=== PATIENT | male | born 1980 | race Caucasian/White ===

== ENCOUNTER 2017-10-19 08:19 | Emergency (ER) | payer OTHER ==
[~2017-10-19 08:19] MED LIST: ALBU8I INH; BENZ1CAP34 PO; PRED20 PO
[2017-10-19 08:21] VITALS: BP 144/77; PULSE 77; RESP 16; TEMP 98.2; O2SAT 99
[2017-10-19] MEDS ORDERED: CEPH-460 PO (08:33)
--- NOTE | 2017-10-19 08:36 | PD ---
HPI . Sore throat Chief Complaint: ENT Complaint Time Seen by Provider: 08:28 Travel History International Travel<30 days: No Contact w/Intl Traveler<30days: No Traveled to known affect area: No History of Present Illness HPI Patient presents with a chief complaint of a sore throat and left ear pain. Onset yesterday. Symptoms have been persistent since that time. Pain is rated 6/10. No known fever. He reports a positive exposure to a respiratory infection at work. [facility] Past Medical History ADD: Yes Diminished Hearing: No Past Surgical History Ear Surgery: Yes ( TUBES A CHILD) Social History Alcohol Use: No Tobacco Use: Yes (1PPD) Substance Use: No Allergies-Medications (Allergen,Severity, Reaction): Coded Allergies: penicillin G (Verified Allergy, Severe, anaphalaytic, 10/19/17) Reported Meds & Prescriptions Reported Meds & Active Scripts Active Keflex (Cephalexin) 500 Mg Capsule 500 Mg PO TID 7 Days Deltasone 20 Mg Tab (Prednisone) 20 Mg Tab 20 Mg PO BID 5 Days Benzonatate 200 Mg Cap 200 Mg PO Q8H PRN Ventolin Hfa (Albuterol Sulfate) 8 Gm Aero 1 Puff INH Q4H PRN * SHAKE WELL BEFORE USE * Review of Systems Except as stated in HPI: all other systems reviewed are Neg General / Constitutional: No: Fever, Chills HENT: Positive: Sore Throat, Earache Physical Exam Narrative GENERAL: Awake and alert and in no acute distress. SKIN: Warm and dry. Normal color and turgor. HEAD: Normocephalic/atraumatic. EYES: Pupils are equal. Extraocular movements are intact. ENT: Oropharynx has erythema and edema of the uvula. The tonsils are not enlarged and there is no exudate. There is no peritonsillar swelling. TMs are shiny barnhart with good light reflexes bilaterally. NECK: Normal range of motion. Supple. No cervical lymphadenopathy palpated. CARDIOVASCULAR: Regular rate and rhythm. RESPIRATORY: Nonlabored respirations. Normal sats. MUSCULOSKELETAL: Atraumatic. Normal muscle tone. NEUROLOGICAL: A and O 3. Nonfocal. PSYCHIATRIC: Appropriate mood and affect. Data Data Last Documented VS Vital Signs Date Time Temp Pulse Resp B/P (MAP) Pulse Ox O2 Delivery O2 Flow Rate FiO2 10/19/17 08:21 98.2 77 16 144/77 (99) 99 Orders Orders Ed Discharge Order (10/19/17 08:33) MDM Medical Decision Making Medical Screen Exam Complete: Yes Emergency Medical Condition: Yes Differential Diagnosis Differential diagnosis of sore throat includes but is not limited to viral illness, strep throat, mononucleosis, retropharyngeal abscess, peritonsillar abscess Narrative Course This patient presents with a chief complaint of a sore throat. He has a red oropharynx with edema of the uvula. He will be treated presumptively for strep with Keflex. He is penicillin allergic. Diagnosis Primary Impression: Pharyngitis Qualified Codes: J02.9 - Acute pharyngitis, unspecified Patient Instructions: General Instructions Departure Forms: Tests/Procedures Additional Instructions: You may use Chloraseptic spray and throat lozenges as needed. Warm salt water gargles are often helpful. You may take Tylenol or ibuprofen for fever and body aches. Scripts Cephalexin (Keflex) 500 Mg Capsule 500 MG PO TID for Infection for 7 Days, CAP 0 Refills Prov: Belle Rankin MD 10/19/17 Disposition: 01 DISCHARGE HOME Condition: Stable Belle Rankin MD Oct 19, 2017 08:36
== END 2017-10-19 08:45 | disposition home or self-care (01) ==
LOC: PHED 08:19
DX: J02.9 Acute pharyngitis, unspecified (principal); H92.02 Otalgia, left ear; F98.8 Other specified behavioral and emotional disorders with onset usually occurring in childhood and adolescence; Z79.899 Other long term (current) drug therapy
CPT/HCPCS: 99283

== ENCOUNTER 2017-11-23 09:38 | Observation (INO) ==
--- NOTE | 2017-11-23 10:06 | ED ---
HPI General Chief Complaint: Chest Pain Stated Complaint: Chest Pain seen yesterday Time Seen by Provider: 11/23/17 09:53 Source: patient Mode of arrival: ambulatory Limitations: no limitations History of Present Illness HPI narrative: This patient complains of chest pressure. Duration 3 days. Symptoms are intermittent. Spells last 5-10 minutes and resolved. They are not exertional. He did have some radiation down his left arm at times. He is currently pain-free. No dyspnea. Symptoms are not pleuritic. He has no history of CAD but never had stress testing. No alleviating factors. No exacerbating factors. He went to [facility] emergency room yesterday for this pain and they wanted to hospitalize him but he left AGAINST MEDICAL ADVICE. Complete Quality Measures for STEMI Alert Patients Related Data Home Medications Medication Instructions Recorded Confirmed No Known Home Medications 11/23/17 11/23/17 Allergies Allergy/AdvReac Type Severity Reaction Status Date / Time penicillin G Allergy Severe anaphalayti Verified 11/23/17 09:52 c Review of Systems Except as stated in HPI: all other systems reviewed are negative [facility] Social History Social History Substance History: No History of Abuse Smoking Status: Current every day smoker Tobacco Type: Cigarettes How Often Do You Have a Drink Containing Alcohol: Monthly or less Recent Travel in [facility] within the Last 8 Weeks: No Recent Out of Country Travel within the Last 8 Weeks: No Immunization History Tetanus Immunization: Unsure Hx Influenza Vaccine This Season: No Exam Narrative Exam Narrative: GENERAL: Well-nourished, well-developed patient in no apparent distress. SKIN: Focused skin assessment reveals no rash and nodules. Skin is Warm and dry. HEAD: Atraumatic. Normocephalic. EYES: Pupils equal and round. No scleral icterus. No injection or drainage. ENT: No nasal bleeding or discharge. Mucous membranes pink and moist. NECK: Trachea midline. No JVD. CARDIOVASCULAR: Regular rate and rhythm. No murmur appreciated. RESPIRATORY: No accessory muscle use. Clear to auscultation. Breath sounds equal bilaterally. GASTROINTESTINAL: Abdomen soft, non-tender, nondistended. Hepatic and splenic margins not palpable. MUSCULOSKELETAL: No obvious deformities. No clubbing. No cyanosis. No edema. NEUROLOGICAL: Awake and alert. No obvious cranial nerve deficits. Motor grossly within normal limits. Normal speech. PSYCHIATRIC: Appropriate mood and affect; insight and judgment normal. Course Initial Documented Vital Signs Temperature 98.1 F 11/23/17 09:48 Pulse Rate 87 11/23/17 09:48 Respiratory Rate 16 11/23/17 09:48 Blood Pressure 145/70 H 11/23/17 09:48 Pulse Oximetry 98 11/23/17 09:48 Last Documented Vital Signs Temperature 98.1 F 11/23/17 09:48 Pulse Rate 66 11/23/17 12:19 Respiratory Rate 20 11/23/17 12:19 Blood Pressure 128/71 11/23/17 12:19 Pulse Oximetry 98 11/23/17 12:19 Medical Decision Making MDM Narrative Medical decision making narrative: IV placed and labs sent I reviewed his EKG which is normal I gave him aspirin He has a written report from my normal chest x-ray yesterday from [facility] so I am not repeating one today Cardiac enzymes are normal. He does have some nonspecific leukocytosis but no pneumonia or other infective symptoms He will be a 23 hour observation on telemetry in the chest pain center to rule out cardiac cause of his symptoms. He is only 37 years old but is a smoker with both parents having had KS in the past. Differential Diagnosis Differential Diagnosis: Differential diagnosis includes KS, angina, pericarditis , pleurisy, GERD, anxiety. Medical Records Medical records reviewed: Yes I reviewed the patient's medical records. Lab Data Lab results reviewed: Yes I reviewed the patient's lab results. Result diagrams: 11/23/17 10:39 11/23/17 10:39 Lab Results 11/23/17 11/23/17 11/23/17 Range/Units 10:39 10:39 10:39 CBC w Diff Auto diff final WBC 16.4 H (4.0-11.0) th/mm3 RBC 4.74 (4.50-5.90) mil/mm3 Hgb 14.9 (13.0-17.0) gm/dL Hct 43.6 (39.0-51.0) % MCV 91.8 (80.0-100.0) fL MCH 31.4 (27.0-34.0) pg MCHC 34.2 (32.0-36.0) % RDW 13.1 (11.6-17.2) % Plt Count 337 (150-450) th/mm3 MPV 8.3 (7.0-11.0) fL Neut % (Auto) 80.6 H (16.0-70.0) % Lymph % (Auto) 11.3 (9.0-44.0) % [place] % (Auto) 6.2 (0.0-8.0) % Eos % (Auto) 0.5 (0.0-4.0) % Baso % (Auto) 1.4 (0.0-2.0) % Neut # (Auto) 13.2 H (1.8-7.7) th/mm3 Lymph # (Auto) 1.9 (1.0-4.8) th/mm3 [place] # (Auto) 1.0 H (0.0-0.9) th/mm3 Eos # (Auto) 0.1 (0.0-0.4) th/mm3 Baso # (Auto) 0.2 (0.0-0.2) th/mm3 WBC Differential . Differential Comment . PT 10.3 (9.8-11.6) sec INR 1.0 Ratio APTT 25.7 (24.3-30.1) sec Sodium 139 (136-145) meq/L Potassium 4.4 (3.5-5.1) meq/L Chloride 106 (98-107) meq/L Carbon Dioxide 27.4 (21.0-32.0) meq/L Anion Gap 6 (5-15) meq/L BUN 12 (7-18) mg/dL Creatinine 1.10 (0.60-1.30) mg/dL Estimated GFR 75 L (>89) mL/min Random Glucose 111 H (74-106) mg/dL Calcium 8.3 L (8.5-10.1) mg/dL Total Creatine Kinase (39-308) U/L Troponin I Less than 0.02 L (0.02-0.05) ng/mL 11/23/17 Range/Units 10:39 CBC w Diff WBC (4.0-11.0) th/mm3 RBC (4.50-5.90) mil/mm3 Hgb (13.0-17.0) gm/dL Hct (39.0-51.0) % MCV (80.0-100.0) fL MCH (27.0-34.0) pg MCHC (32.0-36.0) % RDW (11.6-17.2) % Plt Count (150-450) th/mm3 MPV (7.0-11.0) fL Neut % (Auto) (16.0-70.0) % Lymph % (Auto) (9.0-44.0) % [place] % (Auto) (0.0-8.0) % Eos % (Auto) (0.0-4.0) % Baso % (Auto) (0.0-2.0) % Neut # (Auto) (1.8-7.7) th/mm3 Lymph # (Auto) (1.0-4.8) th/mm3 [place] # (Auto) (0.0-0.9) th/mm3 Eos # (Auto) (0.0-0.4) th/mm3 Baso # (Auto) (0.0-0.2) th/mm3 WBC Differential Differential Comment PT (9.8-11.6) sec INR Ratio APTT (24.3-30.1) sec Sodium (136-145) meq/L Potassium (3.5-5.1) meq/L Chloride (98-107) meq/L Carbon Dioxide (21.0-32.0) meq/L Anion Gap (5-15) meq/L BUN (7-18) mg/dL Creatinine (0.60-1.30) mg/dL Estimated GFR (>89) mL/min Random Glucose (74-106) mg/dL Calcium (8.5-10.1) mg/dL Total Creatine Kinase 75 (39-308) U/L Troponin I (0.02-0.05) ng/mL Discharge Plan Discharge Disposition Patient Disposition: 30 Still Patient Discharge Condition Condition: Stable Discharge Details Diagnosis: Atypical chest pain Physicians Team ED Provider: César Nogueira Primary Care Provider: Primary Care Kristal Hobson Rxs /Orders / Referrals /Forms Prescriptions: No Action No Known Home Medications RF: 0 Discharge Instructions Patient Printed Instructions: Chest Pain (ED) Status ED Status: With Doctor
[2017-11-23 10:47] LABS: Baso # (Auto) 0.2 th/mm3 (0.0-0.2); Baso % (Auto) 1.4 % (0.0-2.0); Eos # (Auto) 0.1 th/mm3 (0.0-0.4); Eos % (Auto) 0.5 % (0.0-4.0); Hematocrit 43.6 % (39.0-51.0); Hemoglobin 14.9 gm/dL (13.0-17.0); Lymph # (Auto) 1.9 th/mm3 (1.0-4.8); Lymph % (Auto) 11.3 % (9.0-44.0); Mean Corpuscular HGB Conc 34.2 % (32.0-36.0); Mean Corpuscular Hemoglobin 31.4 pg (27.0-34.0); Mean Corpuscular Volume 91.8 fL (80.0-100.0); Mean Platelet Volume 8.3 fL (7.0-11.0); Mono % (Auto) 6.2 % (0.0-8.0); Neut # (Auto) 13.2 th/mm3 (1.8-7.7); Neut % (Auto) 80.6 % (16.0-70.0); Platelet Count 337 th/mm3 (150-450); Red Blood Count 4.74 mil/mm3 (4.50-5.90); Red Cell Distribution Width 13.1 % (11.6-17.2); White Blood Count 16.4 th/mm3 (4.0-11.0)
[2017-11-23 10:53] LABS: Chloride 106 meq/L (98-107); Potassium 4.4 meq/L (3.5-5.1); Sodium 139 meq/L (136-145)
[2017-11-23 10:55] LABS: Calcium 8.3 mg/dL (8.5-10.1)
[2017-11-23 10:56] LABS: Anion Gap 6 meq/L (5-15); Blood Urea Nitrogen 12 mg/dL (7-18); Carbon Dioxide 27.4 meq/L (21.0-32.0); Glucose,Random 111 mg/dL (74-106)
[2017-11-23 10:57] LABS: Activated Partial Thrombo Time 25.7 sec (24.3-30.1); Prothrombin Time 10.3 sec (9.8-11.6)
[2017-11-23 10:59] LABS: Glomerular Filtration Rate 75 mL/min (>89)
[2017-11-23] MEDS ORDERED: Acetaminophen 500 MG Tablet PO PRN (12:50)
[2017-11-23] MEDS ORDERED: Sod Chloride 0.9% Inj 1,000 ML IV.CONT SCH (13:00)
[2017-11-23] MEDS ORDERED: Morphine Sulfate Inj 2 MG/ML Vial IV.PUSH PRN (13:15)
[2017-11-23 13:41] LABS: Creatine Kinase 85 U/L (39-308)
--- NOTE | 2017-11-23 13:41 | P.HP ---
History of Present Illness Primary Care Physician: No Primary Care Physician Chief Complaint: Chest pain History of Present Illness: 37-year-old male with no chronic medical illnesses who presented to the hospital for evaluation of chest pain. Patient indicates that he been experiencing chest discomfort for the last few months. He states that it is located over the left anterior chest and does radiate into his left arm occasionally. He states that is intermittent and can happen during rest or exertion. Patient states that the pain usually self resolves he has never taken any medication in order to make it any better. Patient indicates that the pain can go anywhere from 4-6 on a pain scale. Patient never had any previous workup. Does not have a prior medical doctor. Patient states that he went to [facility] and was recommended admission yesterday, however he indicates that due to insurance reasons he could not stay to have that done. The patient came to [place] today and is recommended that patient be observed in the chest pain center. - Diagnosis (1) Atypical chest pain Review of Systems All other systems reviewed negative except as stated in HPI Cardiovascular: Reports chest pain PMFSH - History History Provided By: Patient - Medical History Medical History: Medical History (Last Updated 11/23/17 @ 13:36 by GIOVANI Santiago) No pertinent past medical history - Surgical History Surgical History: Surgical History (Last Updated 11/23/17 @ 13:36 by GIOVANI Santiago) History of tympanostomy - Family History Family History: Family History (Last Updated 11/23/17 @ 13:37 by GIOVANI [email or web address]) Father Family history of heart disease - Tobacco History Second Hand Smoke Exposure: Yes Tobacco Use In Past 30 Days: Yes Smoking Status: Current every day smoker Tobacco Type: Cigarettes Packs Per Day: 1.5 - Alcohol History How Often Do You Have a Drink Containing Alcohol: 2 to 3 times a week - Substance Use History Substance History: No History of Abuse, Active Abuse (Smokes marijuana daily) - Travel History Recent Travel in the [place] Within the Last 8 Weeks: No Recent Travel Out of the Country Within the Last 8 Weeks: No - Immunization History Tetanus Immunization: Unsure Hx Influenza Vaccine This Season: No Medications and Allergies Active Medications: Active Medications Acetaminophen (Tylenol) 500 mg PO Q4H PRN PRN Reason: HEADACHE Hydrocodone Bitart/Acetaminophen ([place] 7.5/325) 1 tab PO Q4H PRN PRN Reason: PAIN SCALE 1 TO 7 Aspirin (Aspirin) 325 mg PO DAILY [facility] Sodium Chloride (Ns Inj) 1,000 mls @ 100 mls/hr IV.CONT .Q10H [facility] Last Admin: 11/23/17 13:23 Dose: 100 mls/hr Morphine Sulfate (Morphine Inj) 2 mg IV.PUSH Q4H PRN PRN Reason: PAIN 8-10 Nitroglycerin (Nitrostat Sl) 0.4 mg SL Q5M PRN PRN Reason: CHEST PAIN Sodium Chloride (Ns Flush) 2 ml IV.FLUSH PRN PRN PRN Reason: FLUSH AFTER USING IV ACCESS Sodium Chloride (Ns Flush) 2 ml IV.FLUSH BID [facility] Allergies Allergy/AdvReac Type Severity Reaction Status Date / Time penicillin G Allergy Severe anaphalayti Verified 11/23/17 13:31 c Home Medications Medication Instructions Recorded Confirmed Type No Known Home Medications 11/23/17 11/23/17 History Exam Vital signs: Vital Signs 11/23/17 09:48 11/23/17 10:01 11/23/17 10:29 Temperature 98.1 F Pulse Rate 87 71 Respiratory Rate 16 20 Blood Pressure 145/70 H 145/86 H Pulse Oximetry 98 96 97 11/23/17 12:19 Temperature Pulse Rate 66 Respiratory Rate 20 Blood Pressure 128/71 Pulse Oximetry 98 Intake & Output 11/22/17 11/23/17 11/23/17 18:59 06:59 18:59 Weight 90 kg Narrative: GENERAL: Well-developed, well-nourished, in no acute distress. alert and orientated HEENT: Head is normocephalic without any lesions or masses noted. Facial features are symmetric. Eyes: Pupils equal round reactive to light. Extraocular muscles are intact. Conjunctivae were clear. Oropharyngeal: Pharynx without any erythema edema. Tongue is midline without deviation. Buccal mucosa is moist without any masses or lesions NECK: Supple without any masses. Trachea midline no deviation. No JVD, no bruits are appreciated CARDIAC: Regular rhythm, regular rate. S1/S2 are heard. No murmurs gallops or rubs. LUNGS: Clear to auscultation bilaterally. No wheeze, rhonchi or rales. No use of accessory muscles on inspiration or expiration. ABDOMEN: Soft, nontender. Nondistended. Bowel sounds heard in all 4 quadrants. No organomegaly or masses. Negative rebound, negative guarding EXTREMITIES: No edema, pulses are equal bilaterally. No cyanosis or clubbing NEUROLOGY: Mood and affect appear appropriate. Cranial nerves II through XII grossly intact. Muscle strength 5/5 in upper and lower extremities bilaterally. Deep tendon reflexes are 2+ in upper and lower extremities bilaterally. Results - Labs CBC & Chem 7: 11/23/17 10:39 11/23/17 10:39 Labs: Laboratory Results - last 24 hr 11/23/17 11/23/17 11/23/17 10:39 10:39 10:39 CBC w Diff Auto diff final WBC 16.4 H RBC 4.74 Hgb 14.9 Hct 43.6 MCV 91.8 MCH 31.4 MCHC 34.2 RDW 13.1 Plt Count 337 MPV 8.3 Neut % (Auto) 80.6 H Lymph % (Auto) 11.3 [place] % (Auto) 6.2 Eos % (Auto) 0.5 Baso % (Auto) 1.4 Neut # (Auto) 13.2 H Lymph # (Auto) 1.9 [place] # (Auto) 1.0 H Eos # (Auto) 0.1 Baso # (Auto) 0.2 WBC Differential . Differential Comment . PT 10.3 INR 1.0 APTT 25.7 Sodium 139 Potassium 4.4 Chloride 106 Carbon Dioxide 27.4 Anion Gap 6 BUN 12 Creatinine 1.10 Estimated GFR 75 L Random Glucose 111 H Calcium 8.3 L Total Creatine Kinase Troponin I Less than 0.02 L 11/23/17 10:39 CBC w Diff WBC RBC Hgb Hct MCV MCH MCHC RDW Plt Count MPV Neut % (Auto) Lymph % (Auto) [place] % (Auto) Eos % (Auto) Baso % (Auto) Neut # (Auto) Lymph # (Auto) [place] # (Auto) Eos # (Auto) Baso # (Auto) WBC Differential Differential Comment PT INR APTT Sodium Potassium Chloride Carbon Dioxide Anion Gap BUN Creatinine Estimated GFR Random Glucose Calcium Total Creatine Kinase 75 Troponin I Caprini VTE Risk Assessment Caprini VTE Risk Assessment: No/Low Risk (score <= 1) Caprini Risk Assessment Model: Point Value = 1 Point Value = 2 Point Value = 3 Point Value = 5 Age 41-60 Minor surgery BMI > 25 kg/m2 Swollen legs Varicose veins or History of unexplained or recurrent spontaneous Oral contraceptives or hormone replacement Sepsis (< 1 month) Serious lung disease, including pneumonia (< 1 month) Abnormal pulmonary function Acute myocardial infarction Congestive heart failure (< 1 month) History of inflammatory bowel disease Medical patient at bed rest Age 61-74 Arthroscopic surgery Major open surgery (> 45 min) Laparoscopic surgery (> 45 min) Malignancy Confined to bed (> 72 hours) Immobilizing plaster cast Central venous access Age >= 75 History of VTE Family history of VTE Factor V Leiden Prothrombin 10031G Lupus anticoagulant Anticardiolipin antibodies Elevated serum homocysteine Heparin-induced thrombocytopenia Other congenital or acquired thrombophilia Stroke (< 1 month) Elective arthroplasty Hip, pelvis, or leg fracture Acute spinal cord injury (< 1 month) Prophylaxis Regimen: Total Risk Factor Score Risk Level Prophylaxis Regimen 0-1 Low Early ambulation 2 Moderate Order ONE of the following: *Sequential Compression Device (SCD) *Heparin 5000 units SQ BID 3-4 Higher Order ONE of the following medications: *Heparin 5000 units SQ TID *Enoxaparin/Lovenox 40 mg SQ daily (WT < 150 kg, CrCl > 30 mL/min) *Enoxaparin/Lovenox 30 mg SQ daily (WT < 150 kg, CrCl > 10-29 mL/min) *Enoxaparin/Lovenox 30 mg SQ BID (WT < 150 kg, CrCl > 30 mL/min) AND/OR *Sequential Compression Device (SCD) 5 or more Highest Order ONE of the following medications: *Heparin 5000 units SQ TID (Preferred with Epidurals) *Enoxaparin/Lovenox 40 mg SQ daily (WT < 150 kg, CrCl > 30 mL/min) *Enoxaparin/Lovenox 30 mg SQ daily (WT < 150 kg, CrCl > 10-29 mL/min) *Enoxaparin/Lovenox 30 mg SQ BID (WT < 150 kg, CrCl > 30 mL/min) AND *Sequential Compression Device (SCD) Assessment and Plan - Assessment (1) Atypical chest pain Code(s): R07.89 - Other chest pain Status: Acute Plan: -Patient with risk factors to include early onset family history, tobacco use -Patient has been ruled out for acute coronary event with serial cardiac enzymes that are negative -Serial EKG shows sinus rhythm without any changes -Exercise stress test was performed and was normal without any signs of ischemia -Continue aspirin, nitroglycerin as needed, [place] for pain -Continue to monitor telemetry -Oxygen as needed - Plan DVT prevention -Low risk, early ambulation Discharge Planning: Discharge home in stable condition Activity: Ad nancy. Diet: Healthy heart diet Medication per medication reconciliation Follow-up with primary medical doctor in 1 week
--- NOTE | 2017-11-23 19:20 | ECG ---
Date Performed: 11/23/2017 Time Performed: 09:49:48 PTAGE: 37 years EKG: Sinus rhythm NORMAL ECG Compared to PREVIOUS TRACING , RSR' resolved PREVIOUS TRACIN02/15/2010 17.44 DOCTOR: Karen Singh Interpretating Date/Time 11/23/2017 19:19:42
--- NOTE | 2017-11-23 19:27 | ECG ---
Date Performed: 11/23/2017 Time Performed: 12:59:53 PTAGE: 37 years EKG: Sinus rhythm NORMAL ECG Since PREVIOUS TRACING , no significant change noted PREVIOUS TRACIN11/23/2017 09.49 DOCTOR: Karen Singh Interpretating Date/Time 11/23/2017 19:25:29
[2017-11-24] MEDS ORDERED: Aspirin 325 MG Tablet PO SCH (09:00)
--- NOTE | 2018-02-05 13:34 | TR ---
Date Performed: 11/23/2017 Time Performed: 14:24:59 DOCTOR: Karen Singh DRUG LIST: CLINICAL HISTORY: REASON FOR TEST: REASON FOR ENDING: Completed Protocol OBSERVATION: Arrhythmia: None Chest Pain: None CONCLUSION: Patient tolerated MANAV protocol with Total Exercise Time=10:02 Maximum PE=199 % Max HR Achieved=90.0% Maximum CW=586/100, Testing stopped secondary to goals acheived, Patient reached t arget HR. During peak exercise, patient had quick upsloping ST segments. HR and BP appropriate respon se to exercise. Recovery period, HR and BP returned to baseline COMMENTS: no ischemia
== END 2017-11-23 15:10 | disposition home or self-care (01) ==
LOC: PHED 09:38 → PH3 09:38 → PHEDA 09:38 → PH3 13:08
PROVIDERS: ADMIT Family Medicine; ATTEND Family Medicine
DX: R07.89 Other chest pain; F17.210 Nicotine dependence, cigarettes, uncomplicated